=== PATIENT | male | born 1995 | race Caucasian/White ===

== ENCOUNTER 2017-07-13 09:15 | Emergency (ER) | payer OTHER ==
[2017-07-13 09:21] VITALS: BP 127/73; PULSE 67; RESP 18; TEMP 98.6; O2SAT 98
--- NOTE | 2017-07-13 10:35 | EDPHY ---
General - History Smoking Status: Current every day smoker Narrative: CHIEF COMPLAINT: "lump" near tailbone HISTORY OF PRESENT ILLNESS: Patient complains of a "lump" on the left side of his buttocks nares tailbone. It has been present for several days. Spontaneous drainage. Pain with palpation or movement. No redness or warmth. No difficulty with bowel movement. No fever. No systemic complaints. Seen by primary care physician 2 days ago and prescribed a combination of clotrimazole with betamethasone. This has not changed his symptoms. No other associated complaints or modifying factors. TETANUS STATUS: Up-to-date MEDICAL/SURGICAL/SOCIAL HISTORY: None REVIEW OF SYSTEMS: Ten systems reviewed and are negative unless otherwise noted in the HPI EXAMINATION General Appearance: Alert, no distress Cardiovascular: Good signs of perfusion. Brisk cap refill Neurological: A&O, sensory symmetric, strength symmetric Skin: Warm and dry, no rash. There is an area of induration on the left medial buttock. There is no fluctuance or surrounding cellulitis. Examination suggest pilonidal cyst. There is tracking in cephalad direction. Extremities: Nontender, no pedal edema DIFFERENTIAL DIAGNOSES: Including but not limited to pilonidal cyst, I dryness are pretty but, perirectal abscess, perianal abscess MDM: 10:30 a.m. Small pilonidal cyst that is spontaneously draining. There is no significant area of fluctuance. No area that would require incision and drainage at this time No cellulitis. No perirectal or perianal abscess by examination. I do feel he would benefit from oral antibiotics and referral to primary care and general surgery for definitive care. We discussed Sitz baths. We discussed pain medication as prescribed as needed. We discussed ED precautions. He is comfortable this plan in no acute distress. SUPERVISION: Patient was independently examined, but I discussed the case with my secondary supervising physician Dr. Parsons ED Precautions: Worsening pain. Erythema, edema, cyanosis, pallor, paresthesia or anesthesia. (Manish Alexander) The patient was evaluated and managed by the physician assistant manager retail. I have reviewed this chart and I agree with the findings and plan of care as documented , as indicated by my signature. I am the secondary supervising physician. ( Celeste Prasons) - Objective Vital Signs: Initial Vital Signs Temperature (C) 37.0 C 07/13/17 09:18 Heart Rate 67 07/13/17 09:18 Respiratory Rate 18 07/13/17 09:18 Blood Pressure 127/73 H 07/13/17 09:18 O2 Sat (%) 98 07/13/17 09:18 O2 Delivery Mode Room Air Allergies/Adverse Reactions: No Known Allergies Allergy (Unverified 07/13/17 09:21) Home Medications: Medication Instructions Recorded Cephalexin [Keflex (*)] 500 mg PO TID #30 cap 07/13/17 Sulfamethox/Tmp 800/160 mg 1 tab PO BID 10 Days tab 07/13/17 [Bactrim Ds] oxyCODONE HCL/ACETAMINOPHEN 1 each PO Q4-6PRN PRN #11 tablet 07/13/17 [Percocet 5-325 mg Tablet] Departure - Departure Disposition: Home, Routine, Self-Care Clinical Impression: Pilonidal cyst Condition: Good Instructions: Pilonidal Cyst (ED), Pilonidal Cyst Excision (DC) Additional Instructions: 1. Medication as prescribed to completion 2. Contact primary care physician and the provided General surgery follow-up 3. ED precautions as discussed Referrals: QUINTON POWERS [Primary Care Provider] - As per Instructions Juan Bedolla MD [Medical Doctor] - As per Instructions Prescriptions: Cephalexin [Keflex (*)] 500 mg PO TID #30 cap oxyCODONE HCL/ACETAMINOPHEN [Percocet 5-325 mg Tablet] 1 each PO Q4-6PRN PRN # 11 tablet PRN Reason: Pain, Breakthrough Sulfamethox/Tmp 800/160 mg [Bactrim Ds] 1 tab PO BID 10 Days tab
[2017-07-13] MEDS ORDERED: PROPOFOL/EMULSION 1,000 MG/100 ML BOTTLE IV ONE (10:39)
== END 2017-07-13 11:07 | disposition home or self-care (01) ==
DX: L05.91 Pilonidal cyst without abscess (principal); F17.200 Nicotine dependence, unspecified, uncomplicated
CPT/HCPCS: J2704